=== PATIENT | female | born 1995 | race Caucasian/White ===

== ENCOUNTER 2020-09-10 16:04 | Outpatient (CLI) | payer SELFPAY ==
[2020-09-10 16:21] LABS: Basophils # 0.2 10^3/uL (0.0-0.1); Basophils % 1.2 %; Eosinophils # 0.1 10^3/uL (0.0-0.8); Eosinophils % 0.5 %; Hematocrit 44.3 % (37.0-47.0); Hemoglobin 14.3 g/dL (11.5-15.3); Lymphocytes # 7.6 10^3/uL (0.8-4.8); Lymphocytes % 59.7 %; Mean Corpuscular HGB Conc 32.3 g/dL (30.0-36.0); Mean Corpuscular Hemoglobin 29.4 pg (28.0-34.0); Mean Platelet Volume 11.4 fL (7.4-10.4); Monocytes # 0.8 10^3/uL (0.2-0.9); Monocytes % 6.2 %; Neutrophils # 4.09 10^3/uL (1.8-7.7); Nucleated Red Blood Cells % 0 %; Platelet Count 192 10^3/cmm (130-400); Red Blood Count 4.87 10^6/uL (4.1-5.3); Red Cell Distribution Width 12.2 % (12.1-15.1); White Blood Count 12.8 10^3/uL (4.0-10.0)
[2020-09-10 18:18] LABS: Slide Review Slide Review Perform
== END 2020-09-10 16:05 | disposition home or self-care (01) ==
LOC: LAB 16:08
PROVIDERS: Visit Provider Nurse Practitioner Family
DX: R10.9 Unspecified abdominal pain (principal)
CPT/HCPCS: 85025

== ENCOUNTER 2020-09-10 16:44 | Outpatient (CLI) | payer BC, SELFPAY ==
--- NOTE | 2020-09-10 17:00 | CTR_ITS ---
PROCEDURE INFORMATION: Exam: CT Abdomen And Pelvis With Contrast Exam date and time: 09/10/2020 5:20 PM Age: 25 years old Clinical indication: Nausea and vomiting; Abdominal pain; Localized; Right lower quadrant (rlq); Additional info: R10.9/r11.15 vomiting/abd pain TECHNIQUE: Imaging protocol: Computed tomography of the abdomen and pelvis with intravenous contrast. Radiation optimization: All CT scans at this facility use at least one of these dose optimization techniques: automated exposure control; mA and/or kV adjustment per patient size (includes targeted exams where dose is matched to clinical indication); or iterative reconstruction. Contrast material: OMNI 300; Contrast volume: 95 ml; Contrast route: INTRAVENOUS (IV); COMPARISON: No relevant prior studies available. RADIATION DOSE METRICS: Total DLP (mGy-cm): 1509.41 FINDINGS: Lungs: Limited assessment of the lung bases fails to reveal evidence for active cardiopulmonary process. Liver: Hepatomegaly. No visible hepatic mass or cystic structure. Gallbladder and bile ducts: Normal. No calcified stones. No ductal dilation. Pancreas: Normal. No ductal dilation. Spleen: Splenomegaly. Suspected small focal splenic infarction posterior segment, age indeterminate. Area of involvement 33 mm x 12 mm x 17 mm. Adrenal glands: Normal. No mass. Kidneys and ureters: Tiny 8 mm cortical cyst equator right kidney. No follow-up recommended. No hydronephrosis or perinephric fluid. No visible nephrolithiasis. Stomach and bowel: Mild diverticulosis coli without visible evidence for acute diverticulitis. Nonobstructive bowel pattern. No visible significant adynamic or reactive ileus. Appendix: The appendix is visualized and appears noninflamed. Intraperitoneal space: No visible evidence of mesenteric lymphadenitis or active mesenteritis/panniculitis. No visible pneumoperitoneum. No visible intraperitoneal ascites. Vasculature: The abdominal aorta is nonaneurysmal. Lymph nodes: No current visible evidence of active mesenteric or retroperitoneal lymphadenopathy. Urinary bladder: Unremarkable as visualized. Reproductive: Unremarkable as visualized. Bones/joints: No visible active or acute osseous pathology. Bilateral spondylolysis L5/S1 without spondylolisthesis. Soft tissues: Unremarkable. Other findings: Obesity. CT/CT abdomen pelvis w con* [id number] IMPRESSION: 1. Suspected small focal splenic infarction posterior segment, age indeterminate. 2. Hepatosplenomegaly. 3. The appendix is visualized and appears noninflamed. 4. Mild diverticulosis coli without visible evidence for acute diverticulitis. COMMENTS: Consistent with the [employer]'s Incidental Findings Committee white paper (J Am Bharat Radiol 2018): Any incidental renal lesion less than 1 cm or classified as too small to characterize, or any incidental cystic renal lesion characterized as simple-appearing, is likely benign. No follow-up imaging is recommended for these lesions per consensus recommendations based on imaging criteria. Radiation Dose CTDIVOL = (mGy): DLP = 1509.41 (mGy-cm)
[2020-09-10] MEDS: iohexol 300 mg/mL 100 mL Btl IV (17:26)
== END 2020-09-10 16:45 | disposition home or self-care (01) ==
PROVIDERS: Visit Provider Nurse Practitioner Family
DX: R10.9 Unspecified abdominal pain (principal); R11.2 Nausea with vomiting, unspecified; R16.2 Hepatomegaly with splenomegaly, not elsewhere classified; K57.90 Diverticulosis of intestine, part unspecified, without perforation or abscess without bleeding
CPT/HCPCS: 74177

== ENCOUNTER 2020-10-07 12:32 | Emergency (ER) | payer BC, SELFPAY ==
[2020-10-07] VITALS (7 sets, daily range): BP systolic 144–174; BP diastolic 93–116; PULSE 86–98; RESP 14–18; TEMP 36.3; O2SAT 95–100; BMI 34.9
--- NOTE | 2020-10-07 12:47 | CTR_ITS ---
PROCEDURE INFORMATION: Exam: CT Abdomen And Pelvis With Contrast Exam date and time: 10/07/2020 3:28 PM Age: 25 years old Clinical indication: Abdominal pain; Localized; Left; Additional info: Abd pain TECHNIQUE: Imaging protocol: Computed tomography of the abdomen and pelvis with intravenous contrast. Axial, coronal and sagittal reformatted images were created and reviewed. Radiation optimization: All CT scans at this facility use at least one of these dose optimization techniques: automated exposure control; mA and/or kV adjustment per patient size (includes targeted exams where dose is matched to clinical indication); or iterative reconstruction. Contrast material: OMNI 300; Contrast volume: 95 ml; Contrast route: INTRAVENOUS (IV); COMPARISON: CT abdomen pelvis w con* [id number] 09/10/2020 5:15 PM RADIATION DOSE METRICS: Total DLP (mGy-cm): 1348.37 FINDINGS: Lungs: Minimal atelectatic change at the right lung base. Liver: Unremarkable. Gallbladder and bile ducts: No radiodense gallstones. No biliary ductal dilatation. Pancreas: Unremarkable. Spleen: Unremarkable. Adrenal glands: Normal. No mass. Kidneys and ureters: 6 mm low-density right renal lesion, too small to characterize. Mild left-sided hydroureteronephrosis and perinephric/periureteral stranding, secondary to a punctate left UVJ calculus (axial image 79 and coronal image 31). Stomach and bowel: No bowel wall thickening. No obstruction. No pneumatosis. Appendix: Normal. Intraperitoneal space: No free fluid. No organized fluid collection. No free air. Vasculature: Unremarkable. No aneurysm. Lymph nodes: No pathologically enlarged lymph nodes. Urinary bladder: Unremarkable as visualized. Reproductive: Unremarkable. Bones/joints: No acute osseous abnormality. Soft tissues: Unremarkable. CT/CT abdomen pelvis w con* [id number] IMPRESSION: 1. Mild left-sided hydroureteronephrosis and perinephric/periureteral stranding, secondary to a punctate left UVJ calculus. 2. Additional findings, as above. COMMENTS: Consistent with the [employer]'s Incidental Findings Committee white paper (J Am Bharat Radiol 2018): Any incidental renal lesion less than 1 cm or classified as too small to characterize, or any incidental cystic renal lesion characterized as simple-appearing, is likely benign. No follow-up imaging is recommended for these lesions per consensus recommendations based on imaging criteria. Radiation Dose CTDIVOL = (mGy): DLP = 1348.37 (mGy-cm)
[2020-10-07] MEDS: ondansetron 2 mg/ML SDV 2 mL 4 MG IVP (14:33)
[2020-10-07] MEDS: sodium chloride 0.9% 1,000 ML 999 ML IV (14:33)
[2020-10-07 14:35] LABS: Add Urine Microscopic? YES; Bilirubin Urine Neg (Negative); Blood Urine Neg (Negative); Glucose Urine UA Norm (Normal); Ketones Urine Negative (Negative); Leukocyte Esterase Urine Negative (Negative); Nitrate Urine Negative (Negative); Protein Urine Neg (Negative); RBC Urine 0-4 /hpf (0-2); Squamous Epithelial Cell Urine 0-4 /hpf (0-5); Urine Appearance Cloudy (CLEAR); Urine Color Yellow (Yellow); Urobilinogen Urine Norm (Negative); WBC Urine 0-4 /hpf (0-5); pH Urine 7 (5-7)
[2020-10-07 14:36] LABS: Bacteria Urine 1+ /hpf
--- NOTE | 2020-10-07 14:44 | ED_ITS ---
HPI - Abdominal Pain General: Chief Complaint: Abdominal Pain Stated Complaint: Severe abdominal pain Time Seen by Provider: 10/07/20 14:37 Source: patient and family Mode of arrival: ambulatory Limitations: no limitations History of Present Illness: HPI narrative: Patient is a 25-year-old female who presents to ED today along with her mother for complaints of left-sided abdomi nal pain that began fairly suddenly this morning. Patient tells me pain seems to be present to the left posterior abdomen and radiates around. She is having nausea without vomiting. She has not had a bowel movement today but states they have been normal over the past few days. She denies dysuria, frequency, or hematuria. She does admit to some mild urgency. She has no history of nephrolithiasis. She denies fevers/chills. She tells me she had one previous episode approximately a month ago and had a CT performed which showed a splenic infarct. MD elicited complaint: abdominal pain Location: LUQ, LLQ and L flank Severity: severe Quality: sharp Migration to: no migration Exacerbating factors: nothing Relieving factors: nothing Associated Symptoms: Reports nausea; Denies change in bowel habits, change in stool character, chills, diarrhea, dysuria, fever(s), heartburn, hematochezia, hematemesis, melena and vomiting Related Data: Patient : No Review of Systems Const: Denies: fever(s), chills, body aches, fatigue or malaise Card: Denies: chest pain Resp: Denies: dyspnea GI: Reports: abdominal pain and nausea; Denies: vomiting, hematemesis, heartburn, diarrhea, change in bowel habits, pain on defecation, change in stool character, hematochezia or melena : Denies: difficulty voiding, dysuria, urinary frequency, dribbling, urinary incontinence, vaginal odor, vaginal bleeding, vaginal discharge or pelvic pain Musc: Denies: neck pain, extremity pain, extremity swelling, joint pain or joint swelling Neuro: Denies: headache(s), numbness in extremities, weakness in extremities or sensory changes Physical Exam Const: COMMON NORMALS: average body habitus, patient oriented x3, no limitations, healthy appearing, alert and well nourished GENERAL APPEARANCE: cooperative and in distress (mild-uncomfortable due to pain) Resp: COMMON NORMALS: normal respiratory effort and clear to auscultation bilaterally AUSCULTATION: clear to auscultation bilaterally Cardio: COMMON NORMALS: regular rate and regular rhythm RATE: regular rate RHYTHM: regular rhythm GI: COMMON NORMALS: Normal to inspection, nondistended, normoactive bowel sounds present, Soft to palpation, No hepatosplenomegaly present and no masses PALPATION: Yes Soft to palpation, Yes Tenderness to palpation present (GI) (LUQ/L middle abdomen ) and Yes No hepatosplenomegaly present : BLADDER/KIDNEY EXAM: Yes CVA tenderness (just below CVA) on the left Back/Pelvis: GENERAL BACK: Yes CVA tenderness (just below CVA) Extremity: COMMON NORMALS: normal to inspection GENERAL: Yes normal exam except as noted Neuro: COMMON NORMALS: patient oriented x3 SENSORIUM/ORIENTATION: Yes alert Skin: COMMON NORMALS: no rashes or lesions noted GENERAL SKIN EXAM: no rashes or lesions noted Course Vital Signs: Vital signs: Vital Signs Temperature 97.3 F L 10/07/20 12:38 Pulse Rate 88 10/07/20 15:34 Respiratory Rate 18 10/07/20 15:48 Blood Pressure 151/98 10/07/20 15:34 Pulse Oximetry 98 10/07/20 15:48 MDM - Abdominal Pain MDM Narrative: Medical decision making narrative: Patient's pain and nausea is controlled here with medications. Her lab work is non-concerning. Her urine does not look infected. She has a left UVJ calculus causing mild hydroureter nephrosis. She will be treated with pain and nausea medications at home. Mother states they have Flomax at home she can take. We will give her a urine strainer and have her follow-up with Dr. Brunson. Return to ED precautions given. Lab Data: Labs: Lab Results 10/07/20 10/07/20 10/07/20 Range/Units 14:15 14:38 14:38 WBC 12.6 H (4.0-10.0) 10^3/ uL RBC 4.56 (4.1-5.3) 10^6/u L Hgb 13.5 (11.5-15.3) g/dL Hct 41.3 (37.0-47.0) % MCV 90.6 (81-99) fL MCH 29.6 (28.0-34.0) pg MCHC 32.7 (30.0-36.0) g/dL RDW 13.0 (12.1-15.1) % Plt Count 236 (130-400) 10^3/c mm MPV 10.2 (7.4-10.4) fL Neut % (Auto) 81.2 % Lymph % (Auto) 13.2 % [place] % (Auto) 4.3 % Eos % (Auto) 0.4 % Baso % (Auto) 0.6 % Neut # (Auto) 10.19 H (1.8-7.7) 10^3/u L Lymph # (Auto) 1.7 (0.8-4.8) 10^3/u L [place] # (Auto) 0.5 (0.2-0.9) 10^3/u L Eos # (Auto) 0.1 (0.0-0.8) 10^3/u L Baso # (Auto) 0.1 (0.0-0.1) 10^3/u L Nucleated RBC % (a uto) 0 % Nucleated RBCs # 0.0 /100WBC Sodium 139 (136-145) mmol/L Potassium 4.0 (3.5-5.1) mmol/L Chloride 106 (98-107) mmol/L Carbon Dioxide 21 L (22-29) mmol/L Anion Gap 16.0 (5-19) BUN 9 (6-20) mg/dL Creatinine 0.6 (0.5-0.9) mg/dL GFR Calculation 122.8 (90-130) mL/min Glucose 111 (65-115) mg/dL Calculated Osmolal ity 287 (285-295) mOsm/k g Calcium 9.2 (8.5-10.5) mg/dL Total Bilirubin 0.3 (0.15-1.2) mg/dL AST 20 (0-32) U/L ALT 18 (0-33) U/L Alkaline Phosphata se 56 (35-105) IU/L Total Protein 7.3 (6.6-8.7) g/dL Albumin 4.3 (3.5-5.2) g/dL Globulin 3.0 (1.3-4.6) g/dL Lipase (13-60) U/L HCG, Qual (Negative) Urine Color Yellow (Yellow) Urine Appearance Cloudy (CLEAR) Urine pH 7 (5-7) Ur Specific Gravit y 1.010 (1.005-1.030) Urine Protein Neg (Negative) Urine Glucose (UA) Norm (Normal) Urine Ketones Negative (Negative) Urine Blood Neg (Negative) Urine Nitrate Negative (Negative) Urine Bilirubin Neg (Negative) Urine Urobilinogen Norm (Negative) mg/dL Ur Leukocyte Kay ase Negative (Negative) Urine RBC 0-4 H (0-2) /hpf Urine WBC 0-4 H (0-5) /hpf Ur Squamous Epith Cells 0-4 H (0-5) /hpf Amorphous Sediment Not Reportable Urine Bacteria 1+ H (NONE) /hpf 10/07/20 10/07/20 Range/Units 14:38 14:38 WBC (4.0-10.0) 10^3/ uL RBC (4.1-5.3) 10^6/u L Hgb (11.5-15.3) g/dL Hct (37.0-47.0) % MCV (81-99) fL MCH (28.0-34.0) pg MCHC (30.0-36.0) g/dL RDW (12.1-15.1) % Plt Count (130-400) 10^3/c mm MPV (7.4-10.4) fL Neut % (Auto) % Lymph % (Auto) % [place] % (Auto) % Eos % (Auto) % Baso % (Auto) % Neut # (Auto) (1.8-7.7) 10^3/u L Lymph # (Auto) (0.8-4.8) 10^3/u L [place] # (Auto) (0.2-0.9) 10^3/u L Eos # (Auto) (0.0-0.8) 10^3/u L Baso # (Auto) (0.0-0.1) 10^3/u L Nucleated RBC % (a uto) % Nucleated RBCs # /100WBC Sodium (136-145) mmol/L Potassium (3.5-5.1) mmol/L Chloride (98-107) mmol/L Carbon Dioxide (22-29) mmol/L Anion Gap (5-19) BUN (6-20) mg/dL Creatinine (0.5-0.9) mg/dL GFR Calculation (90-130) mL/min Glucose (65-115) mg/dL Calculated Osmolal ity (285-295) mOsm/k g Calcium (8.5-10.5) mg/dL Total Bilirubin (0.15-1.2) mg/dL AST (0-32) U/L ALT (0-33) U/L Alkaline Phosphata se (35-105) IU/L Total Protein (6.6-8.7) g/dL Albumin (3.5-5.2) g/dL Globulin (1.3-4.6) g/dL Lipase 24 (13-60) U/L HCG, Qual Negative (Negative) Urine Color (Yellow) Urine Appearance (CLEAR) Urine pH (5-7) Ur Specific Gravit y (1.005-1.030) Urine Protein (Negative) Urine Glucose (UA) (Normal) Urine Ketones (Negative) Urine Blood (Negative) Urine Nitrate (Negative) Urine Bilirubin (Negative) Urine Urobilinogen (Negative) mg/dL Ur Leukocyte Kay ase (Negative) Urine RBC (0-2) /hpf Urine WBC (0-5) /hpf Ur Squamous Epith Cells (0-5) /hpf Amorphous Sediment Urine Bacteria (NONE) /hpf Imaging Data ^: CT Abd/Pel: Radiologist's impression: [id number] [address] [address] Scan Report Signed Patient: Oren Lopez Unit #: [id number] : 1995 Age/Sex: 25 / F ADM Date: 10/07/20 Loc: ER Room/Bed: Attending Dr: Ordering Provider/Ordering MD: Rodriguez Butler DO Date of Service: 10/07/20 Procedure(s): CT abdomen pelvis w con* [id number] Accession Number(s): [id number] Report Number: [id number] PROCEDURE INFORMATION: Exam: CT Abdomen And Pelvis With Contrast Exam date and time: 10/07/2020 3:28 PM Age: 25 years old Clinical indication: Abdominal pain; Localized; Left; Additional info: Abd pain TECHNIQUE: Imaging protocol: Computed tomography of the abdomen and pelvis with intravenous contrast. Axial, coronal and sagittal reformatted images were created and reviewed. Radiation optimization: All CT scans at this facility use at least one of these dose optimization techniques: automated exposure control; mA and/or kV adjustment per patient size (includes targeted exams where dose is matched to clinical indication); or iterative reconstruction. Contrast material: OMNI 300; Contrast volume: 95 ml; Contrast route: INTRAVENOUS (IV); COMPARISON: CT abdomen pelvis w con* [id number] 09/10/2020 5:15 PM RADIATION DOSE METRICS: Total DLP (mGy-cm): 1348.37 FINDINGS: Lungs: Minimal atelectatic change at the right lung base. Liver: Unremarkable. Gallbladder and bile ducts: No radiodense gallstones. No biliary ductal dilatation. Pancreas: Unremarkable. Spleen: Unremarkable. Adrenal glands: Normal. No mass. Kidneys and ureters: 6 mm low-density right renal lesion, too small to characterize. Mild left-sided hydroureteronephrosis and perinephric/periureteral stranding, secondary to a punctate left UVJ calculus (axial image 79 and coronal image 31). Stomach and bowel: No bowel wall thickening. No obstruction. No pneumatosis. Appendix: Normal. Intraperitoneal space: No free fluid. No organized fluid collection. No free air. Vasculature: Unremarkable. No aneurysm. Lymph nodes: No pathologically enlarged lymph nodes. Urinary bladder: Unremarkable as visualized. Reproductive: Unremarkable. Bones/joints: No acute osseous abnormality. Soft tissues: Unremarkable. CT/CT abdomen pelvis w con* [id number] IMPRESSION: 1. Mild left-sided hydroureteronephrosis and perinephric/periureteral stranding, secondary to a punctate left UVJ calculus. 2. Additional findings, as above. COMMENTS: Consistent with the [place] [employer]'s Incidental Findings Committee white paper (J Am Bharat Radiol 2018): Any incidental renal lesion less than 1 cm or classified as too small to characterize, or any incidental cystic renal lesion characterized as simple-appearing, is likely benign. No follow-up imaging is recommended for these lesions per consensus recommendations based on imaging criteria. Radiation Dose CTDIVOL = (mGy): DLP = 1348.37 (mGy-cm) Dictated By: Zac Gambino MD Signed By: Zac Gambino MD Signed Date/Time: 10/07/201611 DD/ 1611 Discharge Plan Discharge Patient Disposition: Home Clinical Impression: Calculus of distal left ureter Condition: Stable Prescriptions: New hydrocodone-acetaminophen 5-325 mg tablet 1 tab PO Q6H PRN (Reason: pain) Qty: 20 RF: 0 Zofran 4 mg tablet 4 mg PO Q6H PRN (Reason: nausea and vomiting) Qty: 14 RF: 0 Discharge Orders: Discharge ED (Routine); Ordered 10/07/20 Ordered By: Palma Pringle Referrals: Moy Brunson MD [Physician] - Patient Instructions: Kidney Stones (ED), How to Strain Your Urine (ED) Activity Restrictions/Additional Instructions: As discussed case management should contact you to set you up with your appointment with Dr. Brunson. Begin straining your urine as directed. Return to the emergency department for severe or uncontrollable pain, repetitive episodes of vomiting, fevers greater than 100.4, or any other concerns you may have. Coding Level of Care Code ED Bowl Attendant for Chg Fwd Exam Detailed
[2020-10-07 14:46] LABS: Basophils # 0.1 10^3/uL (0.0-0.1); Basophils % 0.6 %; Eosinophils # 0.1 10^3/uL (0.0-0.8); Eosinophils % 0.4 %; Hematocrit 41.3 % (37.0-47.0); Hemoglobin 13.5 g/dL (11.5-15.3); Lymphocytes # 1.7 10^3/uL (0.8-4.8); Lymphocytes % 13.2 %; Mean Corpuscular HGB Conc 32.7 g/dL (30.0-36.0); Mean Corpuscular Hemoglobin 29.6 pg (28.0-34.0); Mean Corpuscular Volume 90.6 fL (81-99); Mean Platelet Volume 10.2 fL (7.4-10.4); Monocytes # 0.5 10^3/uL (0.2-0.9); Monocytes % 4.3 %; Neutrophils # 10.19 10^3/uL (1.8-7.7); Neutrophils % 81.2 %; Nucleated Red Blood Cells % 0 %; Platelet Count 236 10^3/cmm (130-400); Red Blood Count 4.56 10^6/uL (4.1-5.3); White Blood Count 12.6 10^3/uL (4.0-10.0)
[2020-10-07] MEDS: morphine 4 mg/mL SDV 1 mL IVP ×2 (14:48→15:48)
[2020-10-07 15:04] LABS: HCG, Serum Qual Negative (Negative)
[2020-10-07 15:08] LABS: Alanine Aminotransferase 18 U/L (0-33); Albumin Level 4.3 g/dL (3.5-5.2); Alkaline Phosphatase 56 IU/L (35-105); Aspartate Amino Transferase 20 U/L (0-32); Blood Urea Nitrogen 9 mg/dL (6-20); Calcium 9.2 mg/dL (8.5-10.5); Carbon Dioxide 21 mmol/L (22-29); Chloride 106 mmol/L (98-107); Glomerular Filtration Rate 122.8 mL/min (90-130); Glucose 111 mg/dL (65-115); Osmolality Calculated 287 mOsm/kg (285-295); Sodium 139 mmol/L (136-145); Total Bilirubin 0.3 mg/dL (0.15-1.2); Total Protein 7.3 g/dL (6.6-8.7)
[2020-10-07 15:22] LABS: Lipase 24 U/L (13-60)
[2020-10-07] MEDS: iohexol 300 mg/mL 100 mL Btl IV (15:45)
--- NOTE | 2020-10-08 10:08 | DCPLANNER ---
manager functional had message to schedule a follow up appointment for patient with Dr. Brunson. manager functional called the office of Dr. Brunson, spoke with Elke, gave clinic patients information. manager functional was told that patients information would be printed and reviewed. Clinic will call patient with appointment information.
--- NOTE | 2020-10-09 08:38 | DCPLANNER ---
Patient has a follow up appointment scheduled for Friday, October 09, 2020 at 9:30. Clinic will call patient with appointment information.
--- NOTE | 2020-10-25 14:47 | DCPLANNER ---
Patient had a follow up appointment scheduled with Dr. Brunson - patient did attend appointment.
== END 2020-10-07 16:49 | disposition home or self-care (01) ==
PROVIDERS: Family Medicine; Emergency Provider Physician Assistant
DX: N20.1 Calculus of ureter (principal)
CPT/HCPCS: 12345; 74177; 80053; 81001; 83690; 84703; 85025; 96361; 96374; 96375; 96376; 99283; J2270; J2405; J7030; Q9967

== ENCOUNTER 2020-10-11 07:30 | Outpatient (CLI) | payer BC, SELFPAY ==
--- NOTE | 2020-10-11 07:51 | XR_ITS ---
WS: [id number] ABDOMEN 1 VIEW(S) HISTORY: URETERAL STONE COMPARISON: None available. Normal bowel gas pattern. No suspicious calcifications or masses. No bone abnormality. XR/XR KUB [id number] IMPRESSION: Normal abdomen. Recently described LEFT UV junction calcification is not identi fied radiographically.
== END 2020-10-11 07:31 | disposition home or self-care (01) ==
PROVIDERS: PCP Family Medicine; Visit Provider Nurse Practitioner Family
DX: N20.1 Calculus of ureter (principal)
CPT/HCPCS: 74018; 81003

== ENCOUNTER 2022-09-30 11:15 | Emergency (ER) | payer OTHER, SELFPAY ==
[2022-09-30 11:21] VITALS: BMI 33.7
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
[2022-09-30 11:29] VITALS: BP 124/92; PULSE 87; O2SAT 97
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
[2022-09-30 11:58] LABS: Basophils # 0.1 10^3/uL (0.0-0.1); Basophils % 0.4 %; Eosinophils # 0.1 10^3/uL (0.0-0.8); Eosinophils % 0.7 %; Hematocrit 44.4 % (37.0-47.0); Hemoglobin 14.6 g/dL (11.5-15.3); Lymphocytes # 2.6 10^3/uL (0.8-4.8); Lymphocytes % 18.8 %; Mean Corpuscular HGB Conc 32.9 g/dL (30.0-36.0); Mean Corpuscular Hemoglobin 30.7 pg (28.0-34.0); Mean Corpuscular Volume 93.3 fl (81-99); Mean Platelet Volume 10.7 fL (7.4-10.4); Monocytes # 0.8 10^3/uL (0.2-0.9); Monocytes % 5.6 %; Neutrophils # 10.06 10^3/uL (1.8-7.7); Neutrophils % 74.1 %; Nucleated Red Blood Cells % 0 %; Platelet Count 306 10^3/cmm (130-400); Red Blood Count 4.76 10^6/uL (4.1-5.3); Red Cell Distribution Width 11.8 % (12.1-15.1); White Blood Count 13.6 10^3/uL (4.0-10.0)
[2022-09-30 12:14] LABS: Alanine Aminotransferase 20 U/L (0-33); Albumin Level 4.3 g/dL (3.5-5.2); Alkaline Phosphatase 52 U/L (35-105); Aspartate Amino Transferase 21 U/L (0-32); Blood Urea Nitrogen 10 mg/dL (6-20); Calcium 9.5 mg/dL (8.5-10.5); Carbon Dioxide 21 mmol/L (22-29); Chloride 108 mmol/L (98-107); Globulin 3.2 g/dL (1.3-4.6); Glomerular Filtration Rate 149.1 mL/min (90-130); Glucose 99 mg/dL (65-115); Osmolality Calculated 289 mOsm/kg (285-295); Sodium 140 mmol/L (136-145); Total Bilirubin 0.2 mg/dL (0.15-1.2); Total Protein 7.5 g/dL (6.6-8.7)
[2022-09-30 12:50] LABS: Add Urine Culture? Yes; Add Urine Microscopic? YES; Bacteria Urine 4+ /hpf; Bilirubin Urine Neg (Negative); Blood Urine Trace (Negative); Glucose Urine UA Norm (Normal); Ketones Urine Negative (Negative); Leukocyte Esterase Urine Negative (Negative); Nitrate Urine Negative (Negative); Protein Urine Neg (Negative); RBC Urine 0-4 /hpf (0-2); Urine Appearance Clear (CLEAR); Urine Color Yellow (Yellow); Urobilinogen Urine Norm (Negative); pH Urine 5 (5-7)
[2022-09-30] MEDS: tetanus-dipt-pertussis 0.5 mL SDV IM (13:19)
[2022-09-30 13:24] VITALS: BP 144/72; PULSE 88; O2SAT 98
== END 2022-09-30 13:33 | disposition home or self-care (01) ==
PROVIDERS: Emergency Provider Family Medicine; PCP Family Medicine
DX: Z04.1 Encounter for examination and observation following transport accident (principal); V89.2XXA Person injured in unspecified motor-vehicle accident, traffic, initial encounter; Z23 Encounter for immunization
CPT/HCPCS: 36415; 70450; 70486; 71045; 72040; 73130; 80053; 81001; 85025; 87086; 90471; 90715; 99285